=== PATIENT | female | born 1990 | race American Indian/Alaskan Native ===

== ENCOUNTER 2018-05-08 11:43 | Emergency (ER) | payer MEDICAID ==
[2018-05-08 11:56] VITALS: BP 124/78
--- NOTE | 2018-05-08 14:28 | Emergency Department Report ---
ED Extremity Problem HPI - General Chief complaint: Extremity Injury, Upper Stated complaint: RIGHT MIDDLE FINGER PAIN Time Seen by Provider: 05/08/18 13:29 Source: patient Mode of arrival: Ambulatory Limitations: No Limitations - History of Present Illness Initial comments: Patient is 27-year-old female who presented with right sided hand pain. Patient states that she hit her hand on a piece of furniture almost a week ago. Patient is having a hard time gripping holding things and states that the majority of her pain is at the right middle finger. Patient denies any other injury. Patient says pain is 8 out of 10 in severity. Severity scale (0 -10): 10 - Related Data Previous Rx's Medication Instructions Recorded Last Taken Type HYDROcodone/APAP 5-325 [[place] 1 each PO Q6HR PRN #15 tablet 05/08/18 Unknown Rx 5/325] Ibuprofen [Motrin] 800 mg PO Q8HR PRN #20 tablet 05/08/18 Unknown Rx Allergies Allergy/AdvReac Type Severity Reaction Status Date / Time No Known Allergies Allergy Unverified 05/08/18 11:51 ED Review of Systems ROS: Stated complaint: RIGHT MIDDLE FINGER PAIN Other details as noted in HPI Comment: All other systems reviewed and negative ED Past Medical Hx - Past Medical History Previous Medical History?: No - Surgical History Past Surgical History?: No - Social History Smoking Status: Never Smoker Substance Use Type: None - Medications Home Medications: Home Medications Medication Instructions Recorded Confirmed Last Taken Type HYDROcodone/APAP 5-325 [[place] 1 each PO Q6HR PRN #15 tablet 05/08/18 Unknown Rx 5/325] Ibuprofen [Motrin] 800 mg PO Q8HR PRN #20 tablet 05/08/18 Unknown Rx ED Physical Exam - General Limitations: No Limitations General appearance: alert, in no apparent distress - Head Head exam: Present: atraumatic, normocephalic - Eye Eye exam: Present: normal appearance - ENT ENT exam: Present: mucous membranes moist - Neck Neck exam: Present: normal inspection - Respiratory Respiratory exam: Present: normal lung sounds bilaterally. Absent: respiratory distress, wheezes, rales, rhonchi - Cardiovascular Cardiovascular Exam: Present: regular rate, normal rhythm. Absent: systolic murmur, diastolic murmur, rubs, gallop - GI/Abdominal GI/Abdominal exam: Present: soft, normal bowel sounds. Absent: distended, tenderness, guarding, rebound - Extremities Exam Extremities exam: Present: normal inspection, tenderness (patient has tenderness to the right middle finger as well as the right mid hand. There is some swelling present in the right mid hand.) - Back Exam Back exam: Present: normal inspection - Neurological Exam Neurological exam: Present: alert, oriented X3 - Psychiatric Psychiatric exam: Present: normal affect, normal mood - Skin Skin exam: Present: warm, dry, intact, normal color. Absent: rash ED Course Vital Signs 05/08/18 11:52 Temperature 98.2 F Pulse Rate 88 Respiratory 14 Rate Blood Pressure 124/78 [Left] O2 Sat by Pulse 100 Oximetry ED Medical Decision Making - Radiology Data interpreted by me: X-ray shows a displaced right middle metacarpal. - Medical Decision Making Patient placed in a splint will be discharged home with follow with orthopedics pain medicines been given. Discussed his fracture care Critical care attestation.: If time is entered above; I have spent that time in minutes in the direct care of this critically ill patient, excluding procedure time. ED Disposition Clinical Impression: Metacarpal bone fracture Qualifiers: Encounter type: initial encounter Metacarpal bone: third Fracture type: closed Metacarpal location: shaft Fracture alignment: displaced Laterality: right Qualified Code(s): S62.322A - Displaced fracture of shaft of third metacarpal bone, right hand, initial encounter for closed fracture Disposition: -01 TO HOME OR SELFCARE Is pt being admited?: No Does the pt Need Aspirin: No Condition: Stable Instructions: Hand Fracture (ED) Referrals: TACO BOX MD [Staff Physician] - 3-5 Days Time of Disposition: 14:28
--- NOTE | 2018-05-08 15:15 | XRay Report ---
RIGHT HAND RADIOGRAPHS INDICATION: Right middle finger injury. COMPARISON: None similar at this institution. FINDINGS: AP, lateral and oblique right hand radiographs demonstrate spiral, possibly comminuted third metacarpal shaft fracture with dorsal displacement of approximately 5 mm on the lateral view. Mild diffuse dorsal soft tissue swelling as well. No joint involvement. Normal remainder exam. CONCLUSION: Right third metacarpal shaft acute displaced fracture noted, as detailed above. Thank you for the opportunity to participate in this patient's care.
== END 2018-05-08 14:46 | disposition home or self-care (01) ==
LOC: ED 11:43
DX: S62.322A Displaced fracture of shaft of third metacarpal bone, right hand, initial encounter for closed fracture (principal); W22.03XA Walked into furniture, initial encounter; Y93.89 Activity, other specified; Y99.8 Other external cause status; Y92.89 Other specified places as the place of occurrence of the external cause

== ENCOUNTER 2019-08-29 22:07 | Observation (INO) | payer MEDICARE ==
[2019-08-30] MEDS ORDERED: LACTATED RINGERS 1,000 ML ONE (00:35)
--- NOTE | 2019-08-30 00:44 | Ultrasound Report ---
ULTRASOUND OBSTETRIC LIMITED INDICATION / CLINICAL INFORMATION: Evaluate amniotic fluid index. COMPARISON: None available. FINDINGS: AMNIOTIC FLUID INDEX (cm) = 9.8 PRESENTATION: Cephalic. HEART RATE (beats per minute): 135 ADDITIONAL FINDINGS: None. IMPRESSION: Single live intrauterine with a normal amniotic fluid index of 9.8 cm. Signer Name: Cuauhtemoc Camarena MD Signed: 08/30/2019 12:39 AM Workstation Name: [id number]
[2019-08-30] MEDS ORDERED: MINERAL OIL 30 ML ORAL LIQD PO PRN (03:10)
[2019-08-30] MEDS ORDERED: BUTORPHANOL 2 MG/1 ML INJ IV PRN (03:10)
[2019-08-30] MEDS ORDERED: AMPICILLIN/NS 2 GM/100 ML 2 GM/100 ML BAG IV ONE (03:10)
[2019-08-30] MEDS ORDERED: fentaNYL 100 MCG/2 ML INJ IV PRN (03:10)
[2019-08-30] MEDS ORDERED: LIDOCAINE (2%) 20 MG/1 ML VIAL 20 ML MDV INFILTRATI ONE (03:10)
[2019-08-30] MEDS ORDERED: ePHEDrine SULFATE 50 MG/1 ML INJ IV PRN ×2 (03:10→05:26)
[2019-08-30] MEDS: LACTATED RINGERS 1,000 ML IV SCH ×2 (03:55→11:43)
[2019-08-30] MEDS ORDERED: OXYTOCIN 20 UNIT/1000ML DRIP 20 UNITS/1,000 ML BAG IV SCH (04:00)
[2019-08-30 04:17] LABS: Hematocrit 34.2 % (30.3-42.9); Hemoglobin 11.3 gm/dl (10.1-14.3); Mean Corpuscular HGB Conc 33 % (30-34); Mean Corpuscular Volume 92 fl (79-97); Platelet Count 164 K/mm3 (140-440); Red Blood Count 3.73 M/mm3 (3.65-5.03); Red Cell Distribution Width 14.9 % (13.2-15.2)
[2019-08-30] MEDS ORDERED: NALOXONE 2 MG/2 ML INJ IV PRN (05:26)
--- NOTE | 2019-08-30 05:26 | Anesthesia Consultation ---
Anesthesia Consult and Med Hx Date of service: 08/30/19 - Airway Anesthetic Teeth Evaluation: Good ROM Head & Neck: Adequate Mental/Hyoid Distance: Adequate Mallampati Class: Class II Intubation Access Assessment: Probably Good - Pulmonary Exam CTA: Yes - Cardiac Exam Cardiac Exam: RRR - Pre-Operative Health Status ASA Pre-Surgery Classification: ASA2 Proposed Anesthetic Plan: Epidural - Pulmonary Hx Smoking: No Hx Asthma: No Hx Respiratory Symptoms: No SOB: No COPD: No Home Oxygen Therapy: No Hx Pneumonia: No Hx Sleep Apnea: No (EDEN PRE SCREEN NEGATIVE) - Cardiovascular System Hx Hypertension: No Hx Coronary Artery Disease: No Hx Heart Attack/AMI: No Hx Angina: No Hx Percutaneous Transluminal Coronary Angioplasty (PTCA): No Hx Cardia Arrhythmia: No Hx Pacemaker: No Hx Internal Defibrillator: No Hx Valvular Heart Disease: No Hx Heart Murmur: No Hx Peripheral Vascular Disease: No - Central Nervous System Hx Neuromuscular Disorder: No Hx Seizures: No CVA: No Hx Back Pain: No Hx Psychiatric Problems: No - Gastrointestinal Hx Ulcer: No Hx Gastroesophageal Reflux Disease: No - Endocrine Hx Renal Disease: No Hx End Stage Renal Disease: No Hx Cirrhosis: No Hx Liver Disease: No Hx Insulin Dependent Diabetes: No Hx Non-Insulin Dependent Diabetes: No Hx Thyroid Disease: No Hx Hypothyroidism: No Hx Hyperthyroidism: No - Hematic Hx Anemia: No Hx Sickle Cell Disease: No - Other Systems Hx Alcohol Use: No Hx Substance Use: No Hx Cancer: No Hx Obesity: No
[2019-08-30] MEDS ORDERED: DEXMEDETOMIDINE 200 MCG/2 ML VIAL IV ONE (05:39)
[2019-08-30] MEDS ORDERED: fentaNYL-BUPIV 2 MCG/ML-0.125% 200 MCG/100 ML BAG EPIDURAL SCH (06:00)
[2019-08-30] MEDS ORDERED: OXYTOCIN DRIP 30 UNITS/500 ML BAG IV SCH (07:00)
[2019-08-30 07:30] LABS: Alanine Aminotransferase 7 units/L (7-56); Uric Acid 6.2 mg/dL (3.5-7.6)
[2019-08-30 07:34] LABS: Bilirubin,Urine NEG (Negative); Blood,Urine SM (Negative); Color,Urine Straw (Yellow); Protein,Urine <15 mg/dL mg/dL (Negative); RBC,Urine < 1.0 /HPF (0.0-6.0); Urobilinogen,Urine < 2.0 mg/dL (<2.0); WBC,Urine < 1.0 /HPF (0.0-6.0)
[2019-08-30 07:44] LABS: Amphetamine Screen,Urine PRESUMPTIVE NEGATIVE; Benzodiazepines Screen,Urine PRESUMPTIVE NEGATIVE; Cocaine Screen,Urine PRESUMPTIVE NEGATIVE; Methadone Screen,Urine PRESUMPTIVE NEGATIVE; Opiate Screen,Urine PRESUMPTIVE NEGATIVE
[2019-08-30 07:58] LABS: Cannabinoid Screen,Urine PRESUMPTIVE POSITIVE
[2019-08-30] MEDS ORDERED: PROMETHAZINE 25 MG TAB PO PRN (09:18)
[2019-08-30] MEDS ORDERED: ONDANSETRON 4 MG/2 ML INJ IV PRN (09:18)
[2019-08-30] MEDS ORDERED: HYDROcodone/ACETAMINOPHEN 5-325 MG TAB PO PRN (09:18)
[2019-08-30] MEDS ORDERED: MAGNESIUM HYDROXIDE (MOM) ORAL LIQD UDC PO PRN (09:18)
[2019-08-30] MEDS ORDERED: diphenhydrAMINE 25 MG CAP PO PRN (09:18)
[2019-08-30] MEDS ORDERED: PROMETHAZINE 25 MG RECT SUPP PR PRN (09:18)
[2019-08-30] MEDS ORDERED: ACETAMINOPHEN 325 MG TAB PO PRN (09:18)
[2019-08-30] MEDS ORDERED: WITCH HAZEL/ GLYCERIN PAD TP PRN (09:18)
[2019-08-30] MEDS ORDERED: LANOLIN/ZINC/DIMETHICONE (LANSINOH) 7 GM TP PRN (09:18)
--- NOTE | 2019-08-30 09:18 | History and Physical Report ---
History of Present Illness Date of examination: 08/30/19 Date of admission: 08/29/19 23:30 Chief complaint: contractions History of present illness: 29y/o @ 37+6 weeks presents with regular uterine contractions and cervical change after observation. records are not available for review. Past History Past Medical History: no pertinent history Past Surgical History: no surgical history Social history: single - Obstetrical History Expected Date of Delivery: 09/13/19 Actual Gestation: 38 Week(s) 0 Day(s) : 3 Para: 1 Hx # Term Pregnancies: 1 Number of Pregnancies: 0 Spontaneous Abortions: 1 Induced : 0 Number of Living Children: 1 Medications and Allergies Allergies Allergy/AdvReac Type Severity Reaction Status Date / Time No Known Allergies Allergy Verified 05/15/18 10:25 Home Medications Medication Instructions Recorded Confirmed Last Taken Type HYDROcodone/APAP 5-325 [[place] 1 each PO Q6HR PRN #15 tablet 05/08/18 05/15/18 Unknown Rx 5/325] Ibuprofen [Motrin] 800 mg PO Q8HR PRN #20 tablet 05/08/18 05/15/18 Unknown Rx Active Meds: Active Medications Butorphanol Tartrate (Stadol) 2 mg IV Q2H PRN PRN Reason: Pain , Severe (7-10) Last Admin: 08/30/19 03:56 Dose: 2 mg Documented by: Ephedrine Sulfate (Ephedrine Sulfate) 10 mg IV Q2M PRN PRN Reason: Hypotension Fentanyl (Sublimaze) 100 mcg IV Q2H PRN PRN Reason: Labor Pain Oxytocin/Sodium Chloride (Pitocin/Ns 20 Unit/1000ml Drip) 20 units in 1,000 mls @ 125 mls/hr IV DIRECT MANUEL Lactated Ringer's (Lactated Ringers) 1,000 mls @ 125 mls/hr IV DIRECT MANUEL Last Admin: 08/30/19 03:55 Dose: 125 mls/hr Documented by: Fentanyl/Bupivacaine/Sodium Chlor (Fentanyl-Bupiv 2 Mcg/Ml-0.125%) 200 mcg in 100 mls @ 12 mls/hr EPIDURAL TITR MANUEL; Protocol Last Admin: 08/30/19 06:08 Dose: 12 mls/hr Documented by: Oxytocin/Sodium Chloride (Pitocin/Ns 30 Unit/500ml) 30 units in 500 mls @ 2 mls/hr IV TITR MANUEL; Protocol Mineral Oil (Mineral Oil) 30 ml PO QHS PRN PRN Reason: Constipation Naloxone HCl (Naloxone) 0.2 mg IV Q5M PRN PRN Reason: Respiratory sedation Review of Systems All systems: negative Genitourinary: contractions - Vital Signs Vital signs: Vital Signs Temp Resp 98.2 F 18 08/29/19 22:29 08/29/19 22:29 Temp Pulse Resp BP Pulse Ox 97.9 F 78 18 127/81 98 08/30/19 03:30 08/30/19 08:49 08/30/19 03:30 08/30/19 08:39 08/30/19 08:49 - Physical Exam Breasts: Positive: deferred Cardiovascular: Regular rate Lungs: Positive: Clear to auscultation Abdomen: Positive: normal appearance Results Result Diagrams: 08/30/19 04:00 08/30/19 06:00 Abnormal lab results 08/30/19 Range/Units 06:00 Lactate Dehydrogenase 236 H (91-180) units/L All other labs normal. Assessment and Plan - Patient Problems (1) Active labor Current Visit: Yes Status: Acute Plan to address problem: admit to L&D
--- NOTE | 2019-08-30 09:23 | Procedure Note ---
OB Delivery Note - Delivery Date of Delivery: 08/30/19 Surgeon: EMILY OLIVARES Estimated blood loss: 100cc - Vaginal Delivery presentation: vertex Intrapartum events: meconium Delivery monitor: external FHT, external uterine Route of delivery: Delivery placenta: spontaneous Delivery cord: nuchal cord, 3 umbilical vessels Delivery laceration: none Anesthesia: epidural Delivery comments: Patient progressed to C/C/+2 and pushed to deliver a liveborn male infant with apgars of 8/9. After delivery of the head, there was noted to be meconium stained fluid. A nuchal cord x 1 was manually reduced. The shoulders delivered without difficulty. The cord was clamped and cut and taken to the warmer for further evaluation by NICU staff. The placenta delivered spontaneously intact with a 3VC. No lacerations were noted. Weight 5lbs 9oz. EBL 100ml - Infant A at 1 minute: 8 at 5 minutes: 9 Infant Gender: Male (weight 5lbs 9oz)
[2019-08-30] MEDS ORDERED: hydrALAZINE 20 MG/1 ML INJ ONE (09:44)
[2019-08-30] MEDS ORDERED: hydrALAZINE 20 MG/1 ML INJ IV PRN (09:50)
[2019-08-30] MEDS ORDERED: MAGNESIUM SULFATE 4 GM/100 ML BAG IV ONE (11:00)
[2019-08-30] MEDS ORDERED: MAGNESIUM SULFATE 40GM/1000ML 40 GM/1,000 ML BAG IV SCH (11:00)
[2019-08-30 21:23] LABS: Hematocrit 32.8 % (30.3-42.9); Hemoglobin 10.9 gm/dl (10.1-14.3)
[2019-08-30] MEDS: IBUPROFEN 600 MG TAB PO SCH (22:00)
[2019-08-31] MEDS ORDERED: LACTATED RINGERS 1,000 ML ONE ×2 (02:55→08:12)
[2019-08-31] MEDS: IBUPROFEN 600 MG TAB PO SCH ×3 (04:30→16:43)
--- NOTE | 2019-08-31 11:11 | Progress Note ---
Assessment and Plan A/P PPD1 male infant s/p mag for 24 hrs will watch BP closely to assess for need for HTN routine PP care Subjective - Subjective Date of service: 08/31/19 Principal diagnosis: /s/p mag for PIH Patient reports: appetite normal, voiding normally, pain well controlled, flatus, ambulating normally [place]: doing well Objective - Vital Signs Latest vital signs: Vital Signs Temp Pulse Resp BP Pulse Ox 08/31/19 11:06 76 100 08/31/19 11:01 80 100 08/31/19 10:56 62 99 08/31/19 10:51 70 100 08/31/19 10:46 72 100 08/31/19 10:41 63 99 08/31/19 10:36 73 99 08/31/19 10:31 63 100 08/31/19 10:26 70 99 08/31/19 10:21 68 99 08/31/19 10:17 75 152/79 08/31/19 10:16 75 99 08/31/19 10:11 81 100 08/31/19 10:06 66 99 08/31/19 10:01 71 99 08/31/19 09:56 69 100 08/31/19 09:51 100 H 100 08/31/19 09:46 70 100 08/31/19 09:41 73 99 08/31/19 09:36 74 100 08/31/19 09:31 71 100 08/31/19 09:26 69 100 08/31/19 09:21 74 100 08/31/19 09:17 80 164/87 08/31/19 09:16 83 100 08/31/19 09:11 81 100 08/31/19 09:06 70 100 08/31/19 09:01 70 99 08/31/19 08:56 67 99 08/31/19 08:51 74 100 08/31/19 08:46 64 99 08/31/19 08:41 63 100 08/31/19 08:36 63 100 08/31/19 08:31 68 100 08/31/19 08:26 62 100 08/31/19 08:21 69 100 08/31/19 08:17 72 144/86 08/31/19 08:16 75 100 08/31/19 08:11 77 100 08/31/19 08:06 79 98 08/31/19 08:01 70 100 08/31/19 07:56 76 100 08/31/19 07:51 73 100 08/31/19 07:50 97.5 F L 18 08/31/19 07:46 65 99 08/31/19 07:41 65 99 08/31/19 07:36 64 99 08/31/19 07:31 65 99 08/31/19 07:26 68 99 08/31/19 07:21 63 99 08/31/19 07:17 67 127/81 08/31/19 07:16 66 99 08/31/19 07:11 68 99 08/31/19 07:06 64 99 08/31/19 07:01 68 99 08/31/19 06:56 73 99 08/31/19 06:51 67 99 08/31/19 06:46 66 99 08/31/19 06:41 67 99 08/31/19 06:36 67 99 08/31/19 06:31 65 99 08/31/19 06:26 65 99 08/31/19 06:21 68 99 08/31/19 06:17 75 112/71 08/31/19 06:16 66 99 08/31/19 06:11 68 99 08/31/19 06:06 67 99 08/31/19 06:01 69 99 08/31/19 06:00 16 08/31/19 05:56 71 99 08/31/19 05:51 73 99 08/31/19 05:46 71 98 08/31/19 05:41 80 99 08/31/19 05:36 84 99 08/31/19 05:31 82 99 08/31/19 05:26 71 99 08/31/19 05:21 72 98 08/31/19 05:17 72 124/72 08/31/19 05:16 77 99 08/31/19 05:11 71 99 08/31/19 05:06 71 99 08/31/19 05:01 72 99 08/31/19 05:00 16 08/31/19 04:56 75 99 08/31/19 04:51 73 98 08/31/19 04:46 70 99 08/31/19 04:41 70 99 08/31/19 04:36 74 99 08/31/19 04:31 71 99 08/31/19 04:26 68 99 08/31/19 04:21 72 98 08/31/19 04:17 75 128/73 08/31/19 04:16 77 99 08/31/19 04:11 70 99 08/31/19 04:06 82 99 08/31/19 04:01 77 99 08/31/19 04:00 16 08/31/19 03:56 75 98 08/31/19 03:51 73 98 08/31/19 03:46 71 98 08/31/19 03:41 74 98 08/31/19 03:36 71 99 08/31/19 03:31 68 98 08/31/19 03:26 70 98 08/31/19 03:21 77 99 08/31/19 03:17 71 134/87 08/31/19 03:16 72 100 08/31/19 03:11 73 97 08/31/19 03:06 72 100 08/31/19 03:01 74 100 08/31/19 02:56 81 100 08/31/19 02:55 71 137/87 08/31/19 02:51 72 98 08/31/19 02:47 16 08/31/19 02:46 74 100 08/31/19 02:41 72 100 08/31/19 02:36 74 100 08/31/19 02:31 75 100 08/31/19 02:26 71 100 08/31/19 02:21 74 100 08/31/19 02:17 78 165/100 08/31/19 02:16 80 100 08/31/19 02:11 71 100 08/31/19 02:06 72 100 08/31/19 02:01 73 100 08/31/19 02:00 18 08/31/19 01:56 70 100 08/31/19 01:51 90 100 08/31/19 01:46 71 99 08/31/19 01:41 71 99 08/31/19 01:36 79 99 08/31/19 01:31 72 98 08/31/19 01:26 73 99 08/31/19 01:21 71 99 08/31/19 01:17 70 124/77 08/31/19 01:16 73 99 08/31/19 01:11 67 98 08/31/19 01:06 77 100 08/31/19 01:01 83 100 08/31/19 01:00 16 08/31/19 00:56 70 98 08/31/19 00:51 70 99 08/31/19 00:46 70 99 08/31/19 00:41 71 99 08/31/19 00:36 71 98 08/31/19 00:31 73 99 08/31/19 00:26 73 99 08/31/19 00:21 69 99 08/31/19 00:17 75 127/81 08/31/19 00:16 80 100 08/31/19 00:11 75 99 08/31/19 00:06 72 99 08/31/19 00:01 73 99 08/31/19 00:00 16 08/30/19 23:56 69 99 08/30/19 23:51 69 99 08/30/19 23:46 75 98 08/30/19 23:41 72 98 08/30/19 23:36 72 98 08/30/19 23:31 73 98 08/30/19 23:26 75 98 08/30/19 23:21 71 99 08/30/19 23:17 68 147/94 08/30/19 23:16 69 99 08/30/19 23:11 70 100 08/30/19 23:06 80 100 08/30/19 23:01 75 99 08/30/19 23:00 16 08/30/19 22:56 79 99 08/30/19 22:51 69 99 08/30/19 22:46 69 99 08/30/19 22:41 71 98 08/30/19 22:36 69 99 08/30/19 22:31 72 99 08/30/19 22:26 69 99 08/30/19 22:21 72 98 08/30/19 22:17 68 123/76 08/30/19 22:16 66 98 08/30/19 22:11 76 99 08/30/19 22:06 75 98 08/30/19 22:01 69 99 08/30/19 22:00 18 08/30/19 21:56 71 99 08/30/19 21:51 79 99 08/30/19 21:46 69 99 08/30/19 21:41 70 99 08/30/19 21:36 68 99 08/30/19 21:31 71 99 08/30/19 21:26 82 100 08/30/19 21:21 74 98 08/30/19 21:17 73 147/76 08/30/19 21:16 73 99 08/30/19 21:11 69 99 08/30/19 21:06 70 99 08/30/19 21:01 68 99 08/30/19 21:00 18 08/30/19 20:56 75 98 08/30/19 20:51 73 98 08/30/19 20:46 70 98 08/30/19 20:41 71 99 08/30/19 20:36 77 98 08/30/19 20:31 84 98 08/30/19 20:26 83 98 08/30/19 20:21 87 96 08/30/19 20:20 79 94 08/30/19 20:17 71 138/87 08/30/19 20:11 79 99 08/30/19 20:06 76 100 08/30/19 20:01 81 100 08/30/19 20:00 16 08/30/19 19:56 81 98 08/30/19 19:55 97.7 F 08/30/19 19:51 77 100 08/30/19 19:46 74 100 08/30/19 19:41 71 100 08/30/19 19:36 77 100 08/30/19 19:31 79 100 08/30/19 19:26 74 100 08/30/19 19:21 86 100 08/30/19 19:17 83 134/88 08/30/19 19:16 84 100 08/30/19 19:11 73 99 08/30/19 19:06 73 99 08/30/19 19:01 80 98 08/30/19 18:56 79 99 08/30/19 18:51 86 100 08/30/19 18:46 92 H 100 08/30/19 18:41 111 H 97 08/30/19 18:36 76 99 08/30/19 18:31 72 100 08/30/19 18:26 69 99 08/30/19 18:21 76 98 08/30/19 18:16 72 150/91 98 08/30/19 18:11 72 100 08/30/19 18:06 75 100 08/30/19 18:01 71 99 08/30/19 17:56 74 99 08/30/19 17:51 80 100 08/30/19 17:46 82 99 08/30/19 17:41 77 99 08/30/19 17:36 67 98 08/30/19 17:31 69 100 08/30/19 17:26 78 100 08/30/19 17:21 72 100 08/30/19 17:17 69 125/92 08/30/19 17:16 67 100 08/30/19 17:11 68 100 08/30/19 17:06 75 100 08/30/19 17:01 70 100 08/30/19 16:56 73 100 08/30/19 16:51 74 99 08/30/19 16:46 73 99 08/30/19 16:41 74 100 08/30/19 16:36 78 99 08/30/19 16:31 70 100 08/30/19 16:26 78 100 08/30/19 16:21 73 100 08/30/19 16:17 76 144/90 08/30/19 16:16 77 99 08/30/19 16:11 81 99 08/30/19 16:06 78 99 08/30/19 16:01 74 100 08/30/19 15:56 81 100 08/30/19 15:51 90 100 08/30/19 15:46 63 100 08/30/19 15:41 68 100 08/30/19 15:17 75 153/89 100 08/30/19 15:12 71 100 08/30/19 15:07 69 100 08/30/19 15:02 74 100 08/30/19 14:57 79 100 08/30/19 14:52 75 99 08/30/19 14:47 70 99 08/30/19 14:42 68 99 08/30/19 14:37 71 99 08/30/19 14:32 78 100 08/30/19 14:27 74 100 08/30/19 14:22 73 100 08/30/19 14:17 83 150/90 99 08/30/19 14:12 81 99 08/30/19 14:07 77 99 08/30/19 14:02 77 100 08/30/19 13:57 88 99 08/30/19 13:52 76 100 08/30/19 13:47 84 100 08/30/19 13:42 104 H 100 08/30/19 13:37 72 100 08/30/19 13:32 74 100 08/30/19 13:27 79 99 08/30/19 13:22 74 100 08/30/19 13:17 75 100 08/30/19 13:16 84 140/100 08/30/19 13:11 80 143/90 08/30/19 13:08 75 148/93 08/30/19 12:41 75 149/79 08/30/19 12:36 74 165/81 08/30/19 12:35 73 100 08/30/19 12:31 90 189/110 08/30/19 12:30 77 100 08/30/19 12:26 98 H 145/92 08/30/19 12:25 105 H 100 08/30/19 12:21 89 159/86 08/30/19 12:20 90 100 08/30/19 12:16 126 H 166/109 08/30/19 12:15 100 H 99 08/30/19 12:11 74 139/78 08/30/19 12:10 75 100 08/30/19 12:06 75 137/85 08/30/19 12:05 78 100 08/30/19 12:01 72 136/85 08/30/19 12:00 75 100 08/30/19 11:56 67 147/89 08/30/19 11:55 69 100 08/30/19 11:54 99.0 F 18 08/30/19 11:51 72 152/90 08/30/19 11:50 74 100 08/30/19 11:46 70 155/88 08/30/19 11:45 73 100 08/30/19 11:40 70 99 08/30/19 11:20 75 161/100 Intake and Output 08/30/19 08/31/19 08/31/19 23:59 07:59 15:59 Intake Total 910.417 851.250 Output Total 1700 1900 Balance -789.583 -1048.750 Intake: IV 910.417 851.250 Lactated Ringers 1,000 ml 910.417 89.583 @ 125 mls/hr IV DIRECT MANUEL Rx#:[id number] MAGNESIUM SULFATE 40GM/ 761.667 1000ML 40 gm In 1,000 ml @ 2 GM/HR 50 mls/hr IV DIRECT [facility] Rx#:[id number] Output: Urine 1700 1900 Indwelling Catheter 1700 1900 Other: Total, Output Amount 1700 200 - Exam Breasts: Present: normal Cardiovascular: Present: Regular rate, Normal S1 Lungs: Present: Clear to auscultation, Normal air movement Abdomen: Present: normal appearance, soft, normal bowel sounds. Absent: distention, tenderness, guarding Uterus: Present: normal, firm, fundal height below umbilicus. Absent: bogginess, tenderness Extremities: Present: normal Deep Tendon Reflex Grade: Normal +2 Incision: Present: normal - Labs Labs: Abnormal lab results 08/30/19 08/30/19 08/31/19 Range/Units 14:31 18:51 00:27 Magnesium 4.70 H 6.90 H 8.10 H (1.7-2.3) mg/dL 08/31/19 Range/Units 05:48 Magnesium 7.60 H (1.7-2.3) mg/dL
[2019-09-01] MEDS ORDERED: TETANUS,DIPH,PERTUSS(ACELL) VACCINE 0.5 ML SYRINGE IM ONE (06:00)
--- NOTE | 2019-09-01 08:15 | Progress Note ---
Assessment and Plan A: PPD#2 s/p at term Severe Preeclampsia s/p Magnesium Sulfate x 24 hrs P: Routine care. Discharge home today with follow up in 1 week for BP check. Subjective - Subjective Date of service: 09/01/19 Principal diagnosis: /s/p mag for PIH Interval history: Pt without complaints. She is looking forward to going home today. She denies PIH symptoms. Patient reports: appetite normal, voiding normally, pain well controlled, ambulating normally [place]: doing well, bottle feeding Objective - Vital Signs Latest vital signs: Vital Signs Temp Pulse Resp BP Pulse Ox 09/01/19 05:28 98.4 F 64 20 113/76 100 08/31/19 23:52 98.5 F 64 20 126/80 100 08/31/19 20:52 98.0 F 70 18 133/87 100 08/31/19 16:27 97.9 F 68 18 120/66 97 08/31/19 13:13 98.2 F 65 16 144/94 98 08/31/19 12:31 70 100 08/31/19 12:26 67 100 08/31/19 12:21 80 100 08/31/19 12:17 77 150/97 08/31/19 12:16 80 100 08/31/19 12:11 70 100 08/31/19 12:06 70 100 08/31/19 12:01 80 100 08/31/19 11:56 75 98 08/31/19 11:54 97.9 F 71 18 100 08/31/19 11:51 70 137/89 100 08/31/19 11:46 70 99 08/31/19 11:41 71 99 08/31/19 11:36 69 100 08/31/19 11:31 71 99 08/31/19 11:26 66 99 08/31/19 11:21 69 99 08/31/19 11:17 65 130/89 08/31/19 11:16 63 100 08/31/19 11:11 65 100 08/31/19 11:06 76 100 08/31/19 11:01 80 100 08/31/19 10:56 62 99 08/31/19 10:51 70 100 08/31/19 10:46 72 100 08/31/19 10:41 63 99 08/31/19 10:36 73 99 08/31/19 10:31 63 100 08/31/19 10:26 70 99 08/31/19 10:21 68 99 08/31/19 10:17 75 152/79 08/31/19 10:16 75 99 08/31/19 10:11 81 100 08/31/19 10:06 66 99 08/31/19 10:01 71 99 08/31/19 09:56 69 100 08/31/19 09:51 100 H 100 08/31/19 09:46 70 100 08/31/19 09:41 73 99 08/31/19 09:36 74 100 08/31/19 09:31 71 100 08/31/19 09:26 69 100 08/31/19 09:21 74 100 08/31/19 09:17 80 164/87 08/31/19 09:16 83 100 08/31/19 09:11 81 100 08/31/19 09:06 70 100 08/31/19 09:01 70 99 08/31/19 08:56 67 99 08/31/19 08:51 74 100 08/31/19 08:46 64 99 08/31/19 08:41 63 100 08/31/19 08:36 63 100 08/31/19 08:31 68 100 08/31/19 08:26 62 100 08/31/19 08:21 69 100 08/31/19 08:17 72 144/86 08/31/19 08:16 75 100 Intake and Output 08/31/19 09/01/19 09/01/19 22:59 06:59 14:59 Intake Total 960 Balance 960 Intake: Oral 240 Intake, Free Water 720 Other: Total, Intake Amount 240 # Voids Indwelling Catheter 3 Void 3 - Exam Breasts: Present: deferred Cardiovascular: Present: Regular rate Lungs: Present: Clear to auscultation Abdomen: Present: soft Uterus: Present: fundal height below umbilicus Extremities: Present: edema (trace ) - Labs Labs: Abnormal lab results 08/31/19 Range/Units 15:10 Magnesium 4.90 H (1.7-2.3) mg/dL
--- NOTE | 2019-09-01 08:16 | Discharge Summary ---
Providers - Providers Date of Admission: 08/29/19 23:30 Date of discharge: 09/01/19 Attending physician: EMILY OLIVARES 08/31/19 16:47 Consult to Case Management [CONS] Routine Services Needed at Discharge: Smoking Pipe Repairer Notified:: CN Was contact made?: No Comment:: UDS +THC Primary care physician: EMILY OLIVARES Hospitalization Reason for admission: active labor Delivery: Procedure details: Please see delivery note. Episiotomy: none Laceration: none Other procedures: none complications: none Discharge diagnosis: IUP at term delivered [place] baby: male Hospital course: Pt was admitted in active labor and went on to have a spontaneous vaginal delivery which she tolerated well. She developed severe preeclampsia and received magnesium sulfate for 24 hours for seizure prophylaxis. By PPD#2, she met discharge criteria. She will follow up in 1 week for BP check. Condition at discharge: Stable Disposition: DC-01 TO HOME OR SELFCARE - Discharge Diagnoses (1) Term of male Status: Acute (2) Severe preeclampsia Status: Acute Qualifiers: Trimester: third trimester Qualified Code(s): O14.13 - Severe pre- eclampsia, third trimester (3) Active labor Status: Acute Plan - Discharge Medications Prescriptions: labetaloL [Labetalol 100mg TAB] 100 mg PO BID #60 tablet Ibuprofen [Motrin] 800 mg PO Q8HR PRN #30 tablet PRN Reason: Pain , Severe (7-10) HYDROcodone/APAP 5-325 [Brady 5/325] 1 each PO Q6HR PRN #10 tablet PRN Reason: Pain - Provider Discharge Summary Activity: routine, no sex for 6 weeks, no heavy lifting 4 weeks, no strenuous exercise Diet: routine Instructions: routine Additional instructions: [] Smoking cessation referral if applicable(refer to patient education folder for contact #) [] Refer to [facility]'s [facility] Booklet Call your doctor immediately for: * Fever > 100.5 * Heavy vaginal bleeding ( >1 pad per hour) * Severe persistent headache * Shortness of breath * Reddened, hot, painful area to leg or breast * Drainage or odor from incision. * Keep incision clean and dry at all times and follow doctor's instructions regarding bathing/showering - Follow up plan Follow up: PESTINE,RAFA R., CNM [Advanced Practice Nurse] - 7 Days (Please call to schedule a blood pressure check in 1 week. Please schedule your son's circumcision before he is one month old. )
[2019-09-01 13:36] VITALS: BP 147/87
== END 2019-09-01 14:30 | disposition home or self-care (01) ==
LOC: TRG 22:07 → LD 23:30 → OB 08-31 13:24
PROVIDERS: ADMIT Obstetrics & Gynecology; ATTEND Obstetrics & Gynecology
DX: O69.81X1 Labor and delivery complicated by cord around neck, without compression, fetus 1 (principal); O77.0 Labor and delivery complicated by meconium in amniotic fluid; O14.13 Severe pre-eclampsia, third trimester; Z23 Encounter for immunization; Z3A.38 38 weeks gestation of pregnancy; Z37.0 Single live birth
CPT/HCPCS: 36415; 59409; 76815; 80307; 81001; 82565; 83615; 83735; 84450; 84460; 84550; 85014; 85018; 85027; 86592; 86706; 86762; 86850; 86900; 86901; 87806; 90471; 90715; 96365; 96366; 96367; 96375; G0009; G0378; J0290; J0360; J0595; J2590; J3475; J3490; J7120; Q0169; 96360; 96361; 96368; 96374; J3010